=== PATIENT | male | born 1950 | race Caucasian/White ===

== ENCOUNTER → 2017-03-11 | Outpatient (CLI) | payer MEDICARE, OTHER ==
[~2017-03-11] MED LIST: ACYCLOVIR200 MG PO; ASPIRIN325 MG PO; CHLORZOXAZONE500 MG PO; COMBIGAN O20 DROP/5 BOTH EYES; CRESTOR20 MG PO; DURAGESIC75 MCG TD; FENTANYL1 EAC2 TD; GLIMEPIRIDE1 MG PO; IBUPROFEN200 M1 PO; LISINOPRIL20 MG PO; LITE COAT ASPI325 M1 PO; METFORMIN HCL1000 MG PO; METOPROLOL SUCC25 MG PO; NEURONTIN300 MG PO; NEURONTIN600 MG PO; OXAYDO5 MG PO; OXAYDO7.5 MG PO; OXYCODONE HCL10 MG PO; PERCOCET 5/31 TABLET PO; PREDNISONE10 MG PO; PRILOSEC OTC20 MG PO; PRILOSEC20 MG PO; PRINIVIL20 MG PO; TOPROL XL25 MG PO; TRAVATAN Z5 ML BOTH EYES; TRAVOPROST 0.02.5 ML BOTH EYES; TRAZODONE HCL50 MG PO; TRUSOPT5 ML BOTH EYES; ZOVIRAX200 MG PO
== END | disposition home or self-care (01) ==
LOC: CDC 03-09 14:00
DX: Z01.810 Encounter for preprocedural cardiovascular examination (principal); G56.02 Carpal tunnel syndrome, left upper limb; M79.642 Pain in left hand
CPT/HCPCS: 93000

== ENCOUNTER 2017-03-20 03:58 | Emergency (ER) | payer OTHER ==
[~2017-03-20] VITALS: Ht 188 cm; Wt 100.2 kg
[2017-03-20 04:02] VITALS: BP 130/64
[2017-03-20] MEDS ORDERED: TOBREX5 ML LEFT EYE (04:51)
[2017-03-20] MEDS ORDERED: ERYTHROMYCIN O3.5 GM LEFT EYE (04:51)
[2017-03-20] MEDS ORDERED: NORCO 5/3251 TABLET PO (04:51)
[2017-03-21] MEDS ORDERED: LOPRESSOR50 MG PO (11:30)
[2017-03-21] MEDS ORDERED: OXYCODONE HCL15 MG PO (11:32)
[2017-03-21] MEDS ORDERED: ERYTHROMYC1 APPLICAT LEFT EYE (11:36)
[2017-03-21] MEDS ORDERED: NEURONTIN600 MG PO (12:14)
[2017-03-21] MEDS ORDERED: CARDURA2 M1 PO (12:15)
== END 2017-03-20 05:10 | disposition home or self-care (01) ==
LOC: EME 03:58
DX: S05.02XA Injury of conjunctiva and corneal abrasion without foreign body, left eye, initial encounter (principal); I10 Essential (primary) hypertension; E11.9 Type 2 diabetes mellitus without complications; Z79.84 Long term (current) use of oral hypoglycemic drugs
CPT/HCPCS: 99281; 99283

== ENCOUNTER 2017-03-30 13:58 | Day surgery (SDC) | payer OTHER ==
[~2017-03-30] VITALS: Ht 188 cm; Wt 99.8 kg
[~2017-03-30 13:58] MED LIST changes: +CARDURA2 M1 PO; +ERYTHROMYC1 APPLICAT LEFT EYE; +ERYTHROMYCIN O3.5 GM LEFT EYE; +LOPRESSOR50 MG PO; +NORCO 5/3251 TABLET PO; +OXYCODONE HCL15 MG PO; +TOBREX5 ML LEFT EYE
[2017-03-30 14:39] VITALS: BP 138/93
[2017-03-30 14:42] LABS: POINT-OF-CARE METER ID UU14174212
[2017-03-30 17:28] VITALS: BP 142/75
== END 2017-03-30 17:43 | disposition home or self-care (01) ==
LOC: SDC
PROVIDERS: Orthopaedic Surgery Hand Surgery
PROC: 01N50ZZ Release Median Nerve, Open Approach (ICD-10-PCS; principal; 2017-03-30)
DX: G56.02 Carpal tunnel syndrome, left upper limb (principal); I10 Essential (primary) hypertension; E78.5 Hyperlipidemia, unspecified; E11.9 Type 2 diabetes mellitus without complications; Z79.82 Long term (current) use of aspirin; Z98.1 Arthrodesis status; Z82.49 Family history of ischemic heart disease and other diseases of the circulatory system; Z83.3 Family history of diabetes mellitus; Z82.61 Family history of arthritis; Z88.8 Allergy status to other drugs, medicaments and biological substances
CPT/HCPCS: 82948; S0020

== ENCOUNTER 2017-04-27 10:46 | Day surgery (SDC) | payer OTHER ==
[~2017-04-27] VITALS: Ht 188 cm; Wt 99.7 kg
[2017-04-27 11:26] LABS: POINT-OF-CARE METER ID UU13113694
[2017-04-27 11:36] VITALS: BP 141/76
[2017-04-27 14:45] VITALS: BP 136/73
== END 2017-04-27 15:35 | disposition home or self-care (01) ==
LOC: SDC 10:46
PROVIDERS: Orthopaedic Surgery Hand Surgery
PROC: 01N50ZZ Release Median Nerve, Open Approach (ICD-10-PCS; principal; 2017-04-27)
DX: G56.01 Carpal tunnel syndrome, right upper limb (principal); I10 Essential (primary) hypertension; E11.9 Type 2 diabetes mellitus without complications; E78.00 Pure hypercholesterolemia, unspecified; Z79.01 Long term (current) use of anticoagulants; Z79.84 Long term (current) use of oral hypoglycemic drugs; Z82.49 Family history of ischemic heart disease and other diseases of the circulatory system; Z83.3 Family history of diabetes mellitus
CPT/HCPCS: 82948; J2250; S0020